=== PATIENT | female | born 1970 | race Asian ===

== ENCOUNTER 2020-05-21 19:49 | Emergency (ER) | payer OTHER ==
[~2020-05-21] VITALS: Ht 149.9 cm; Wt 59.0 kg
[2020-05-21 19:57] VITALS: Ht 149.9 cm; Wt 59.0 kg
[2020-05-21 20:56] LABS: BASOPHIL % 0.4 % (0-2); PLATELET COUNT 217 x10^3mcL (130-400)
[2020-05-21 20:58] LABS: RED CELL DISTRIBUTION WIDTH 23.4 % (11.5-14.5)
[2020-05-21 21:17] LABS: rbc morphology (normal/abnorm) ABNORMAL (NORMAL); tear drop cell (dacryocyte) 1+
[2020-05-21 22:48] VITALS: BP 113/71
== END 2020-05-21 22:48 | disposition home or self-care (01) ==
LOC: ED 19:49
DX: D50.9 Iron deficiency anemia, unspecified (principal); N93.9 Abnormal uterine and vaginal bleeding, unspecified; N39.0 Urinary tract infection, site not specified; Z88.0 Allergy status to penicillin
CPT/HCPCS: 36415